=== PATIENT | female | born 1995 | race Caucasian/White ===

== ENCOUNTER 2019-12-07 05:45 | Emergency (ER) | payer BC, OTHER ==
[2019-12-07 05:57] VITALS: RESP 18
[2019-12-07] MEDS ORDERED: ORPHENADRINE 30 MG/ML 2 ML VIAL IM STA (06:02)
[2019-12-07] MEDS ORDERED: KETOROLAC 30 MG/ML 1 ML VIAL IM STA (06:03)
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
[2019-12-07 06:56] VITALS: BP 150/92; PULSE 84; TEMP 99
== END 2019-12-07 06:55 | disposition home or self-care (01) ==
LOC: EC 05:45
DX: M54.6 Pain in thoracic spine (principal); M25.512 Pain in left shoulder; M25.511 Pain in right shoulder; V49.59XA Passenger injured in collision with other motor vehicles in traffic accident, initial encounter; Y92.410 Unspecified street and highway as the place of occurrence of the external cause; Y99.0 Civilian activity done for income or pay
CPT/HCPCS: 99284; 96372 ×2; J2360; J1885

== ENCOUNTER → 2019-12-09 | Outpatient (CLI) | payer OTHER ==
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
== END | disposition home or self-care (01) ==
LOC: RADCTMAIN 13:40
PROVIDERS: ATTEND Emergency Medicine
DX: S13.4XXA Sprain of ligaments of cervical spine, initial encounter (principal); V89.2XXA Person injured in unspecified motor-vehicle accident, traffic, initial encounter; R51 Headache
CPT/HCPCS: 70450; 72125

== ENCOUNTER 2023-04-26 08:25 | Inpatient (IN) | payer BC ==
[2023-04-26] MEDS: IOPAMIDOL CONTRAST (ORAL USE) VIAL PO PRN ×2 (09:20→10:25)
[2023-04-26 09:33] LABS: Appearance,Urine Clear (Clear); Basophils % (A) 0 %; Bilirubin,Urine Negative (Negative); Blood,Urine Negative (Negative); Color,Urine Light Yellow; Eosinophils # (A) 0.1 k/uL (0-0.7); Eosinophils % (A) 1 %; Glucose,Urine (UA) Negative (Negative); HCT 33.8 % (34.0-46.0); HGB 11.4 gm/dL (11.4-16.0); Ketones,Urine Negative (Negative); Leukocyte Esterase,Urine Negative (Negative); Lymphocytes % (A) 7 %; MCH 31.8 pg (25.0-35.0); MCHC 33.8 g/dL (31.0-37.0); MCV 94.2 fL (80.0-100.0); Mean Platelet Volume 7.8; Monocytes # (A) 0.5 k/uL (0-1.0); Monocytes % (A) 3 %; Neutrophils % (A) 88 %; Nitrite,Urine Negative (Negative); PH, Urine 6.5 (5.0-8.0); Platelet Count 176 k/uL (150-450); Protein,Urine Negative (Negative); RBC 3.59 m/uL (3.80-5.40); RDW 13.4 % (11.5-15.5); Specific Gravity,Urine 1.005 (1.001-1.035); Urobilinogen,Urine <2.0 mg/dL (<2.0); WBC 13.6 k/uL (3.8-10.6)
[2023-04-26 09:34] LABS: African American GFR (CKD) >90 (>60 ml/min/1.73 sqM); Anion Gap 7 mmol/L; Blood Urea Nitrogen 8 mg/dL (7-17); Calcium 8.1 mg/dL (8.4-10.2); Carbon Dioxide 20 mmol/L (22-30); Chloride 107 mmol/L (98-107); Glucose 79 mg/dL (74-99); Non-African American GFR(CKD) >90 (>60 ml/min/1.73 sqM); Sodium 134 mmol/L (137-145)
[2023-04-26 09:44] LABS: Potassium 4.2 mmol/L (3.5-5.1)
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
--- NOTE | 2023-04-26 10:54 | CT ---
EXAMINATION TYPE: CT abdomen pelvis w con DATE OF EXAM: 04/26/2023 COMPARISON: NONE HISTORY: 28-year-old female RLQ pain TECHNIQUE: Contiguous axial scanning of the abdomen and pelvis following administration of 100 ml Iso dante 300 IV contrast. Coronal/sagittal reconstructions performed. CT DLP: 1179.4 mGycm Automated exposure control for dose reduction was used. FINDINGS: LUNG BASES: No significant abnormality is appreciated. LIVER/GB: The extreme right hepatic dome is excluded from view. The gallbladder appears surgically ab sent. Liver is enlarged measuring over 20 cm craniocaudal. Otherwise, no significant abnormality is a ppreciated. PANCREAS: No significant abnormality is seen. SPLEEN: Enlarged at 15.7 cm. ADRENALS: No significant abnormality is seen. KIDNEYS: No significant abnormality is seen. BOWEL: Appendix is visualized, fluid-filled, distended to 1.0 cm. There may be minimal adjacent fat s tranding, axial image 50 and coronal image 58. LYMPH NODES: No significant abnormality is seen. OTHER: No free air or free fluid. PELVIS: Gravid uterus. Anterior placenta. Uterus distended measuring 21.6 cm craniocaudal. A single i ntrauterine gestation is noted. Otherwise, no significant abnormality seen. Ovaries not well delineat ed from adjacent bowel loops. No significant free fluid seen. 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 Otherwise, no significant abnormality is seen. IMPRESSION: 1. FLUID-FILLED APPENDIX MILDLY DISTENDED UP TO 1.0 CM. THERE MAY BE MINIMAL ADJACENT FAT STRANDING O N AXIAL AND CORONAL SERIES. IN THE CORRECT CLINICAL SETTING, FINDINGS ARE SUGGESTIVE OF EARLY ACUTE A PPENDICITIS. 2. HEPATOSPLENOMEGALY AND GRAVID UTERUS.
[2023-04-26] MEDS: SODIUM CHLORIDE 0.9% 1,000 ML IV SCH ×2 (12:01→21:54)
[2023-04-26] MEDS: ACETAMINOPHEN IV (For NPO) 1,000 MG in EMPTY BAG 1 BAG IVPB SCH ×2 (12:01→19:50)
--- NOTE | 2023-04-26 12:03 | P.HPOB ---
History of Present Illness H&P Date: 04/26/23 Chief Complaint: abdominal pain 28 year old presents at 25 weeks 3 days in horrible constant abdominal pain more related to the right side. CT scan shows evidence of appendicitis and she has a WBC of 13.8. I consulted Dr Hyde, general surgery, who said to start rocephin and flagyl and he will then come see her. FHT are 150's with moderate variability, category 1. no contractions. Review of Systems All systems: negative Constitutional: Reports anorexia, Denies chills, Denies fever Eyes: denies blurred vision, denies pain Ears, nose, mouth and throat: Denies headache, Denies sore throat Cardiovascular: Denies chest pain, Denies shortness of breath Respiratory: Denies cough Gastrointestinal: Reports abdominal pain, Reports nausea, Denies diarrhea, Denies vomiting Genitourinary: Denies dysuria, Denies hematuria Musculoskeletal: Denies myalgias Integumentary: Denies pruritus, Denies rash Neurological: Denies numbness, Denies weakness Psychiatric: Reports depression, Denies anxiety Endocrine: Denies fatigue, Denies weight change Past Medical History Past Medical History: No Reported History Additional Past Medical History / Comment(s): PT has had one c-sections. This is her second and she has had care with me since the first trimester. RH neg History of Any Multi-Drug Resistant Organisms: None Reported Past Surgical History: Section Smoking Status: Never smoker Medications and Allergies Home Medications Medication Instructions Recorded Confirmed Type Escitalopram Oxalate [Lexapro] 20 mg PO DAILY 03/25/22 03/25/22 History Etonogestrel/Ethinyl Estradiol 1 vag ring VAGINAL Q28D 03/25/22 03/25/22 History [Eluryng Vaginal Ring] buPROPion XL [Wellbutrin XL] 150 mg PO DAILY 03/25/22 03/25/22 History HYDROcodone/APAP 5-325MG [[place] 1 tab PO Q6HR PRN 3 Days #12 tab 03/27/22 Rx 5-325] Ibuprofen [Motrin] 600 mg PO Q8HR PRN #30 tab 03/27/22 Rx Allergies Allergy/AdvReac Type Severity Reaction Status Date / Time No Known Allergies Allergy Verified 04/26/23 08:56 Exam Osteopathic Statement: *. No significant issues noted on an osteopathic structural exam other than those noted in the History and Physical/Consult. Intake and Output 04/25/23 04/26/23 04/26/23 22:59 06:59 14:59 Other: Weight 112.491 kg HEArt: RRR Lungs: CTAB ABdomen: gravid, tender over the right side with some guarding and rebound. Extremeties: neg akilah's Results Result Diagrams: 04/26/23 09:15 04/26/23 09:15 Abnormal Lab Results - Last 24 Hours (Table) 04/26/23 04/26/23 Range/Units 09:15 09:15 WBC 13.6 H (3.8-10.6) k/uL RBC 3.59 L (3.80-5.40) m/uL Hct 33.8 L (34.0-46.0) % Neutrophils # 12.0 H (1.3-7.7) k/uL Sodium 134 L (137-145) mmol/L Carbon Dioxide 20 L (22-30) mmol/L Creatinine 0.35 L (0.52-1.04) mg/dL Calcium 8.1 L (8.4-10.2) mg/dL Assessment and Plan (1) 25 weeks gestation of Current Visit: Yes Status: Acute Code(s): Z3A.25 - 25 WEEKS GESTATION OF SNOMED Code(s): 37363974 (2) Appendicitis Current Visit: Yes Status: Acute Code(s): K37 - UNSPECIFIED APPENDICITIS SNOMED Code(s): 76241222 Plan: 1. consult General surgery, Dr Hyde has been notified 2. start rocephin and flagyl 3. ofirmev and dilaudid 4. npo 5. monitor baby daily with a 20minute strip
[2023-04-26] MEDS: HYDROmorphone 1 MG/ML 1 ML SYRINGE IVP PRN ×3 (13:16→19:52)
--- NOTE | 2023-04-26 13:18 | P.GSCN ---
History of Present Illness Consult date: 04/26/23 Reason for Consult: Acute abdominal pain, second trimester , computed tomography scan abdomen and pelvis suggestive of acute appendicitis Requesting physician: Paulina Bueno History of present illness: Patient is a 28-year-old young lady who presented to [facility] of labor and delivery department with acute onset of focal mid and right lateral abdominal pain at around 7:00 this morning associated with anorexia. She denies discrete nausea and vomiting at present, no reports of fever or chills. She has some radiation of pain to the right flank and back of an aching character. She hasn't had similar symptoms in the past. Has no known history of inflammatory bowel disease. No reports of issues with diarrhea or constipation or GI bleeding. Surgical history is significant for previous laparoscopic cholecystectomy and delivery. She is presently 25 weeks' gestation into her second . Initial workup showed reassuring heart rate in the 150s. Abdominal ultrasound was obtained initially which was nondiagnostic. A follow-up computed tomography scan of the abdomen and pelvis was obtained, images and official report were reviewed showing what would appear to be an early uncomplicated acute appendicitis. Appendix is to posterior right lateral right upper quadrant, displaced cephalad by the gravid uterus. There is no discrete appendicolith seen, there is mild dilation of the appendix up to around 1 cm and some scant periappendiceal fat stranding. No evidence of rupture or abscess. Initial labs showed a mild leukocytosis, patient's had a hemodynamically stable and afebrile appearance in terms of vital signs. Pain has been persistent until early this afternoon. Review of Systems All systems: negative - Constitutional Reports as per HPI Past Medical History Past Medical History: No Reported History Additional Past Medical History / Comment(s): PT has had one c-sections. This is her second and she has had care with me since the first trimester. RH neg History of Any Multi-Drug Resistant Organisms: None Reported Past Surgical History: Section, Cholecystectomy Smoking Status: Never smoker - Past Family History Mother Family Medical History: No Reported History Medications and Allergies Home Medications Medication Instructions Recorded Confirmed Type Escitalopram Oxalate [Lexapro] 20 mg PO DAILY 03/25/22 03/25/22 History Etonogestrel/Ethinyl Estradiol 1 vag ring VAGINAL Q28D 03/25/22 03/25/22 History [Eluryng Vaginal Ring] buPROPion XL [Wellbutrin XL] 150 mg PO DAILY 03/25/22 03/25/22 History HYDROcodone/APAP 5-325MG [[place] 1 tab PO Q6HR PRN 3 Days #12 tab 03/27/22 Rx 5-325] Ibuprofen [Motrin] 600 mg PO Q8HR PRN #30 tab 03/27/22 Rx Allergies Allergy/AdvReac Type Severity Reaction Status Date / Time No Known Allergies Allergy Verified 04/26/23 08:56 Surgical - Exam Osteopathic Statement: *. No significant issues noted on an osteopathic structural exam other than those noted in the History and Physical/Consult. Vital Signs Temp Pulse Resp BP Pulse Ox 98.0 F 86 16 116/62 99 04/26/23 08:55 04/26/23 08:55 04/26/23 08:55 04/26/23 08:55 04/26/23 08:55 - General well developed, well nourished, moderate pain - Eyes PERRL, normal ocular movement - ENT normal mucosa, no hearing loss - Neck trachea midline - Respiratory normal expansion, normal respiratory effort, clear to auscultation - Cardiovascular Rhythm: regular - Abdomen There is severe focal right lateral tenderness to palpation with voluntary guarding, positive Rovsing sign consistent with localized peritonitis. Positive psoas sign on the right. No evidence of diffuse peritonitis. Abdomen: soft Hernia: none - Integumentary no rash, no growths - Neurologic normal coordination, normal sensation - Psychiatric oriented to time, oriented to person, oriented to place, speech is normal, memory intact Results - Labs 04/26/23 09:15 04/26/23 09:15 Abnormal Lab Results - Last 24 Hours (Table) 04/26/23 04/26/23 Range/Units 09:15 09:15 WBC 13.6 H (3.8-10.6) k/uL RBC 3.59 L (3.80-5.40) m/uL Hct 33.8 L (34.0-46.0) % Neutrophils # 12.0 H (1.3-7.7) k/uL Sodium 134 L (137-145) mmol/L Carbon Dioxide 20 L (22-30) mmol/L Creatinine 0.35 L (0.52-1.04) mg/dL Calcium 8.1 L (8.4-10.2) mg/dL Diabetes panel 04/26/23 Range/Units 09:15 Sodium 134 L (137-145) mmol/L Potassium 4.2 (3.5-5.1) mmol/L Chloride 107 (98-107) mmol/L Carbon Dioxide 20 L (22-30) mmol/L BUN 8 (7-17) mg/dL Creatinine 0.35 L (0.52-1.04) mg/dL Glucose 79 (74-99) mg/dL Calcium 8.1 L (8.4-10.2) mg/dL Calcium panel 04/26/23 Range/Units 09:15 Calcium 8.1 L (8.4-10.2) mg/dL Pituitary panel 04/26/23 Range/Units 09:15 Sodium 134 L (137-145) mmol/L Potassium 4.2 (3.5-5.1) mmol/L Chloride 107 (98-107) mmol/L Carbon Dioxide 20 L (22-30) mmol/L BUN 8 (7-17) mg/dL Creatinine 0.35 L (0.52-1.04) mg/dL Glucose 79 (74-99) mg/dL Calcium 8.1 L (8.4-10.2) mg/dL Adrenal panel 04/26/23 Range/Units 09:15 Sodium 134 L (137-145) mmol/L Potassium 4.2 (3.5-5.1) mmol/L Chloride 107 (98-107) mmol/L Carbon Dioxide 20 L (22-30) mmol/L BUN 8 (7-17) mg/dL Creatinine 0.35 L (0.52-1.04) mg/dL Glucose 79 (74-99) mg/dL Calcium 8.1 L (8.4-10.2) mg/dL - Imaging CT scan - abdomen: report reviewed, image reviewed CT scan - pelvis: report reviewed, image reviewed US - abdomen: report reviewed Assessment and Plan Assessment: 28-year-old lady with a clinical history, physical exam findings, laboratory studies, and computed tomography scan findings all consistent with an early uncomplicated acute appendicitis in the setting of a second trimester at 25 weeks' gestation. Reassuring heart rate on presentation. Plan: Options for treatment were discussed with the patient at bedside. I advised her that nonoperative management with antibiotics alone is an option but may be associated with an increased risk of labor and loss compared to appendectomy with around a threefold increase in its ratio. She was also advised that she would have an increased risk for her port site and incisional hernia in the setting of surgery in . She wishes to move forward laparoscopic, possible open appendectomy and gave informed consent for the same after discussion of risks, benefit and alternatives to treatment. She's been started on broad-spectrum IV antibiotics with Rocephin 2 g every 24 hours and Flagyl 500 mg every 8 hours. I've had her added to the OR schedule for today, we will anticipate surgery somewhere between 5 and 6 PM early this evening schedule permitting. Time with Patient: Greater than 30
[2023-04-26] MEDS: metroNIDAZOLE-NS PMX 500 MG in SALINE 1 100ML.BAG IVPB SCH (14:26)
[2023-04-26 14:49] LABS: Prothrombin Time 10.6 sec (9.0-12.0)
[2023-04-26] MEDS ORDERED: IV FLUID CONTINUATION 1,000 ML IV ONE (21:29)
[2023-04-26] MEDS ORDERED: ONDANSETRON 4 MG/2 ML VIAL ONE (21:29)
[2023-04-26] MEDS ORDERED: MORPHINE SULFATE (PF) 0.3 MG/0.3 ML SYR ONE (21:29)
[2023-04-26] MEDS ORDERED: LIDOCAINE 0.5%-EPI 1:200,000 50 ML VIAL SQ ONE (21:51)
[2023-04-26] MEDS ORDERED: BUPIVACAINE (PF) 0.25% 30 ML VIAL SQ ONE (21:51)
[2023-04-26] MEDS ORDERED: LACTATED RINGERS 1,000 ML IV ONE (22:30)
[2023-04-26] MEDS ORDERED: ONDANSETRON 4 MG/2 ML VIAL IVP PRN (22:48)
[2023-04-26] MEDS ORDERED: NALOXONE 0.4 MG/ML 1 ML VIAL IV PRN (22:48)
--- NOTE | 2023-04-26 23:07 | P.OP ---
Date of Procedure: 04/26/23 Preoperative Diagnosis: Acute appendicitis, second trimester Postoperative Diagnosis: Acute suppurative appendicitis without rupture or abscess, second trimester Procedure(s) Performed: Open appendectomy with local anesthesia field block and abdominal drain placement, application of Prevena wound VAC dressing over a 12 cm incision Anesthesia: local, spinal Surgeon: Sal Waller Estimated Blood Loss (ml): 15 Pathology: other (Appendix and moved to pathology, intra-abdominal fluid submitted for cultures and Gram stain) Condition: stable Disposition: PACU Indications for Procedure: Patient is a 28-year-old lady who presented to labor and delivery floor at [facility] on 04/26/2023 with acute onset of right-sided abdominal pain at around 7:00 in the morning of that same day. Pain grew progressive into the day and as such she presented to the hospital. Initial abdominal ultrasound was inconclusive, patient had a mild leukocytosis and exam findings concerning for acute appendicitis. This was confirmed with abdominal CT. Patient was started on broad-spectrum antibiotics and gave informed consent for the aforementioned procedure after discussion of risks, benefit alternatives to treatment. Operative Findings: Acute separative appendicitis without rupture or abscess. Description of Procedure: Patient was taken to the operating room suite. She was placed in supine posi tion and prepped and draped in sterile fashion proximal following spinal anesthesia. Local anesthesia field block was performed over the planned incision over the right abdomen at the area of greatest tenderness on exam and a small transverse skin incision made and abdomen entered with a rectus splitting incision following fascial block at the anterior sheath with 1% lidocaine and quarter percent Marcaine with epinephrine solution. There was a small amount of purulent free fluid noted on entry a sample was submitted for culture and fluid fully aspirated.. The cecum was identified, medialized, and the tinea followed to the indurated, acutely inflamed appearing appendix. There was no evidence of discrete rupture or abscess. Window was created bluntly at the base of the appendix at its confluence with the cecum and divided with Endo CARMELITA tri-staple Wilder load. Mesoappendix and appendiceal artery were taken down with LigaSure. Appendix was submitted to pathology. Staple line was intact, operative showed adequate hemostasis. Given the separative free fluid encountered about the appendix 19-[place] Tashi drain was placed in the right lower quadrant abdomen, secured with 0 silk and connected to suction. The anterior sheath was closed longitudinally with interrupted #1 Vicryl suture. The incision was reapproximated with 3-0 Vicryl dermal suture and skin incision closed with skin stapler. Upper vena VAC dressing was placed over the approximately 12 cm skin incision, connected to suction without leak. Patient was transferred to the postanesthesia care unit in stable condition. She may advance to clear liquids tomorrow, continue with IV antibiotics in the meantime. If she does well she may be ready for discharge home tomorrow afternoon at the earliest with antibiotic coverage for a full 10 day course.
[2023-04-26] MEDS ORDERED: HYDROmorphone 0.5 MG/0.5 ML SYRINGE IVP ONE ×2 (23:12→23:19)
[2023-04-27] MEDS: ACETAMINOPHEN IV (For NPO) 1,000 MG in EMPTY BAG 1 BAG IVPB SCH (00:26)
[2023-04-27] MEDS: metroNIDAZOLE-NS PMX 500 MG in SALINE 1 100ML.BAG IVPB SCH ×3 (00:44→16:02)
[2023-04-27] MEDS: HYDROmorphone 1 MG/ML 1 ML SYRINGE IVP PRN ×5 (03:55→20:01)
[2023-04-27] MEDS ORDERED: HYDROcodone/APAP 7.5-325MG 1 EACH TAB PO PRN (04:32)
[2023-04-27] MEDS: diphenhydrAMINE 50 MG CAP PO PRN ×2 (04:43→10:51)
[2023-04-27] MEDS: SODIUM CHLORIDE 0.9% 1,000 ML IV SCH ×2 (05:59→18:36)
--- NOTE | 2023-04-27 10:15 | P.PNOBGAP ---
Subjective - Subjective Principal diagnosis: S/P appendectomy POD #1, at 25 weeks 4 days Interval history: Patient underwent open appendectomy with placement of drain yesterday by Dr. Waller. heart tones remained category 1 at 25 weeks and 4 days. Patient's pain is now well controlled currently. I will change her from all the oral medications to Tylenol every 6 and Dilaudid IV push every 3 hours as needed. Antepartum ROS: Reports movement normal, Denies loss of fluid, Denies vaginal bleeding, Denies contractions Objective - Vital Signs Vital Signs: Vital Signs Temp Pulse Pulse Pulse Resp BP Pulse Ox 04/27/23 08:00 97.9 F 83 18 107/58 96 04/27/23 06:04 14 04/27/23 03:53 96.8 F L 96 16 109/63 97 04/27/23 02:00 97.2 F L 83 14 113/59 97 04/27/23 01:18 97.5 F L 96 14 111/57 95 04/27/23 00:50 101 H 18 113/56 96 04/27/23 00:33 98.7 F 95 18 108/57 97 04/27/23 00:20 92 16 106/58 04/27/23 00:05 84 14 114/59 04/26/23 23:53 98.5 F 89 14 117/59 94 L 04/26/23 23:23 97 20 116/65 96 04/26/23 23:08 90 20 118/64 94 L 04/26/23 22:52 97.5 F L 97 16 115/68 97 04/26/23 20:40 93 14 99/52 96 04/26/23 17:01 98.2 F 90 16 114/57 04/26/23 12:00 98.0 F 86 16 116/62 99 Intake and Output 04/26/23 04/27/23 04/27/23 22:59 06:59 14:59 Intake Total 1800 1000 Output Total 13 490 1060 Balance 1787 510 -1060 Intake: IV 1800 1000 Output: Drainage 90 60 Right Lower Anterior 90 60 Abdomen Urine 400 1000 Uretheral (Chiu) 400 1000 Estimated Blood Loss 13 Other: Voiding Method Indwelling Catheter # Voids 1 - Exam FHR: class 1 Auscultation: right: normal Abdomen: Present: normal appearance, soft, other (Small amount of serous drainage in the drain, dressing is clean and intact, decreased bowel sounds) Uterus: Present: normal, other () - Labs Labs: Abnormal Labs 04/26/23 04/26/23 09:15 09:15 WBC 13.6 H RBC 3.59 L Hct 33.8 L Neutrophils # 12.0 H Sodium 134 L Carbon Dioxide 20 L Creatinine 0.35 L Calcium 8.1 L Assessment and Plan (1) 25 weeks gestation of Current Visit: Yes Status: Acute Code(s): Z3A.25 - 25 WEEKS GESTATION OF SNOMED Code(s): 08339395 (2) Appendicitis Current Visit: Yes Status: Resolved Code(s): K37 - UNSPECIFIED APPENDICITIS SNOMED Code(s): 40100067 (3) Status post appendectomy Current Visit: Yes Status: Acute Code(s): Z90.49 - ACQUIRED ABSENCE OF OTHER SPECIFIED PARTS OF DIGESTIVE TRACT SNOMED Code(s): 487837943 Plan: 1. Pain control 2. Increase ambulation 3. heart tones daily
[2023-04-27] MEDS ORDERED: NALBUPHINE 10 MG/ML (10 ML MDV) IM ONE (10:34)
[2023-04-27] MEDS: ACETAMINOPHEN TAB 500 MG TAB PO SCH ×2 (11:52→18:33)
[2023-04-27] MEDS ORDERED: ACETAMINOPHEN IV (For NPO) 1,000 MG in EMPTY BAG 1 BAG IVPB SCH (12:00)
--- NOTE | 2023-04-27 12:37 | P.PN ---
Subjective Progress Note Date: 04/27/23 Principal diagnosis: Acute suppurative appendicitis without rupture or organized abscess, second trimester at 25 weeks' gestation Patient seen and examined at bedside today. Admits to some significant incisional pain is worse with movement and position changes. Has been tolerating clear liquids, appetite remains somewhat poor. No bowel function yet, voiding without issue of this afternoon, required 1 straight cath postoperatively. She's had a hemodynamically stable and afebrile appearance overnight. Prevena wound vac is in some place to suction without leak, abdominal drain yielding predominantly serous aspirate. Objective - Vital Signs Vital signs: Vital Signs Temp 97.9 F 04/27/23 08:00 Pulse 83 04/27/23 08:00 Resp 18 04/27/23 08:00 BP 107/58 04/27/23 08:00 Pulse Ox 96 04/27/23 08:00 FiO2 Intake & Output 04/26/23 04/27/23 04/27/23 18:59 06:59 18:59 Intake Total 2800 Output Total 503 1985 Balance 2296 -1984 Weight 112.491 kg Intake: IV 2800 Output: Drainage 90 85 Right Lower Anterior 90 85 Abdomen Urine 400 1900 Uretheral (Chiu) 400 1000 Estimated Blood Loss 13 Other: Voiding Method Indwelling Catheter # Voids 1 1 1 - Constitutional General appearance: Present: cooperative, no acute distress - EENT Eyes: Present: PERRLA ENT: Present: hearing grossly normal, NA/AT - Respiratory Respiratory: bilateral: CTA - Cardiovascular Rhythm: regular - Gastrointestinal Gastrointestinal Comment(s): Abdomen is soft, there is moderate incisional tenderness to palpation over the right lateral abdomen. Abdominal drains in place with serous aspirate. Wound VAC dressings in place to suction without leak. - Neurologic Neurologic: Present: CNII-XII intact - Psychiatric Psychiatric: Present: A&O x's 3, appropriate affect, intact judgment & insight - Labs CBC & Chem 7: 04/26/23 09:15 04/26/23 09:15 Assessment and Plan Assessment: 28-year-old lady POD#1 open appendectomy for acute suppurative appendicitis without rupture or abscess. Second trimester at 25 weeks' gestation, reassuring heart rate today. Plan: Continue with clear liquids for today, continue with IV antibiotics. Increase activity. If she shows some improvement tomorrow will anticipate advancing diet. I would anticipate her being in the hospital through the weekend. Continue with drain to suction. Time with Patient: Greater than 30
--- NOTE | 2023-04-27 18:32 | P.PN ---
Progress Note - Text Progress Note Date: 04/27/23 Postoperative day 1 status post open appendectomy under spinal anesthesia, and intrathecal morphine given for postoperative analgesia, patient doing well, there is no anesthesia related complications, Patient had no headache, vital signs stable , Assessment and plan= postop day 1 status post open appendectomy, doing well there is no anesthesia related complication.
[2023-04-27] MEDS ORDERED: MAGNESIUM SULFATE-WATER PMX 4 GM in WATER FOR INJECTION 1 100ML.BAG IVPB ONE (21:59)
[2023-04-27] MEDS: MAGNESIUM SULFATE-WATER PMX 20 GM in WATER FOR INJECTION 1 500ML.BAG IV SCH (22:38)
[2023-04-27] MEDS ORDERED: INDOMETHACIN 25 MG CAP PO STA (22:40)
[2023-04-27] MEDS ORDERED: MAG HYDROX/AL HYDROX/SIMETH 30 ML CUP PO PRN (22:44)
--- NOTE | 2023-04-27 22:54 | US ---
EXAMINATION TYPE: US OB limited DATE OF EXAM: 04/27/2023 COMPARISON: NONE CLINICAL INDICATION: Female, 28 years old with history of leonie, position; evaluate LEONIE and posit ion EXAM PERFORMED: Transabdominal (TA) GESTATIONAL AGE / DATING Physician Established: (25 weeks/5 days) EDC: 08/05/23 No growth performed on today?s study per ordering physician SURVEY LEONIE: 13.5 cm Normal Ultrasound evidence of premature rupture of membranes? no PRESENTATION: Vertex LIE: Transverse with head maternal LT HEART RATE: 134 bpm RHYTHM: Normal IMPRESSION: survey , information as described above. ,
[2023-04-27] MEDS: BETAMET ACET-BETAMETH SOD PHOS 6 MG/ML MDV IM SCH (23:00)
[2023-04-28] MEDS: metroNIDAZOLE-NS PMX 500 MG in SALINE 1 100ML.BAG IVPB SCH ×4 (00:12→23:53)
[2023-04-28] MEDS: ACETAMINOPHEN TAB 500 MG TAB PO SCH ×5 (00:13→22:07)
[2023-04-28] MEDS: LACTATED RINGERS 1,000 ML IV SCH ×2 (00:14→16:14)
[2023-04-28 05:35] LABS: Basophils % (A) 0 %; Eosinophils % (A) 1 %; HCT 30.5 % (34.0-46.0); HGB 10.3 gm/dL (11.4-16.0); Lymphocytes # (A) 0.6 k/uL (1.0-4.8); Lymphocytes % (A) 10 %; MCH 31.9 pg (25.0-35.0); MCHC 33.6 g/dL (31.0-37.0); MCV 94.8 fL (80.0-100.0); Mean Platelet Volume 8.1; Monocytes # (A) 0.4 k/uL (0-1.0); Monocytes % (A) 6 %; Neutrophils # (A) 5.1 k/uL (1.3-7.7); Neutrophils % (A) 82 %; Platelet Count 147 k/uL (150-450); RBC 3.22 m/uL (3.80-5.40); RDW 13.4 % (11.5-15.5); WBC 6.2 k/uL (3.8-10.6)
[2023-04-28] MEDS: INDOMETHACIN 25 MG CAP PO SCH ×4 (06:23→23:54)
[2023-04-28 06:52] LABS: ALT 14 U/L (4-34); AST 19 U/L (14-36); African American GFR (CKD) >90 (>60 ml/min/1.73 sqM); Albumin 2.9 g/dL (3.5-5.0); Alkaline Phosphatase 88 U/L (38-126); Anion Gap 4 mmol/L; Blood Urea Nitrogen 3 mg/dL (7-17); Calcium 6.7 mg/dL (8.4-10.2); Carbon Dioxide 22 mmol/L (22-30); Chloride 109 mmol/L (98-107); Glucose 94 mg/dL (74-99); Non-African American GFR(CKD) >90 (>60 ml/min/1.73 sqM); Potassium 3.4 mmol/L (3.5-5.1); Sodium 135 mmol/L (137-145); Total Bilirubin 0.3 mg/dL (0.2-1.3); Total Protein 5.6 g/dL (6.3-8.2)
[2023-04-28] MEDS: MAGNESIUM SULFATE-WATER PMX 20 GM in WATER FOR INJECTION 1 500ML.BAG IV SCH (07:55)
--- NOTE | 2023-04-28 09:12 | P.PNOBGAP ---
Subjective - Subjective Principal diagnosis: Status post open appendectomy, G to P1 at 25 and 6 Interval history: Last night and was called in to see the patient due to contractions and increased pain. Her cervix remained closed but she did start to have contractions every few minutes. Started magnesium sulfate for brain sparing, Celestone for baby's lungs in case she does deliver and a course of Indocin after an LEONIE was measured to be 13 cm. She has since stopped blaine and I will discontinue the magnesium sulfate continue the Indocin. She is starting to have an appetite and has bowel sounds, is passing flatus. Antepartum ROS: Reports movement normal, Denies loss of fluid, Denies contractions Objective - Vital Signs Vital Signs: Vital Signs Temp Pulse Pulse Resp BP Pulse Ox 04/28/23 08:00 97.3 F L 80 18 118/64 100 04/28/23 06:21 97.2 F L 72 14 115/67 97 04/28/23 03:59 97.3 F L 92 14 107/56 96 04/28/23 01:58 96.8 F L 85 14 110/58 95 04/28/23 00:01 98.6 F 85 14 120/64 95 04/27/23 23:03 97.5 F L 81 16 105/54 96 04/27/23 22:48 86 18 121/65 98 04/27/23 22:33 79 18 119/62 94 L 04/27/23 22:18 97.9 F 75 20 109/59 99 04/27/23 20:00 98.2 F 78 18 110/61 100 04/27/23 18:00 18 04/27/23 15:57 97.3 F L 75 16 111/55 99 04/27/23 14:00 17 04/27/23 13:00 97.4 F L 79 18 101/50 04/27/23 10:00 16 Intake and Output 04/27/23 04/28/23 04/28/23 22:59 06:59 14:59 Intake Total 100 1150 464.167 Output Total 100 3440 625 Balance 0 -2290 -160.833 Intake: IV 100 1100 Invasive Line 1 1000 Intake, IV Titration 464.167 Amount Magnesium Sulfate-Water 464.167 Pmx 20 gm In Water For Injection 1 500ml.bag @ 2 GM/HR 50 mls/hr IV .Q10H [facility] Rx#:[id number] Oral 50 Output: Drainage 100 90 25 Right Lower Anterior 100 90 25 Abdomen Urine 3350 600 Uretheral (Chiu) 3350 Other: Voiding Method Indwelling Catheter Indwelling Catheter # Voids 1 0 - Exam FHR: class 1 Auscultation: bilateral: normal Abdomen: Present: normal appearance, soft Uterus: Present: normal - Labs Labs: Abnormal Labs 04/26/23 04/26/23 04/28/23 09:15 09:15 05:23 WBC 13.6 H RBC 3.59 L 3.22 L Hgb 10.3 L Hct 33.8 L 30.5 L Plt Count 147 L Neutrophils # 12.0 H Lymphocytes # 0.6 L Sodium 134 L Potassium Chloride Carbon Dioxide 20 L BUN Creatinine 0.35 L Calcium 8.1 L Total Protein Albumin 04/28/23 05:23 WBC RBC Hgb Hct Plt Count Neutrophils # Lymphocytes # Sodium 135 L Potassium 3.4 L Chloride 109 H Carbon Dioxide BUN 3 L Creatinine 0.43 L Calcium 6.7 L Total Protein 5.6 L Albumin 2.9 L Assessment and Plan (1) 25 weeks gestation of Current Visit: Yes Status: Acute Code(s): Z3A.25 - 25 WEEKS GESTATION OF SNOMED Code(s): 67867440 (2) Appendicitis Current Visit: Yes Status: Resolved Code(s): K37 - UNSPECIFIED APPENDICITIS SNOMED Code(s): 14472441 (3) Status post appendectomy Current Visit: Yes Status: Acute Code(s): Z90.49 - ACQUIRED ABSENCE OF OTHER SPECIFIED PARTS OF DIGESTIVE TRACT SNOMED Code(s): 510078149 Plan: 1. Continue Indocin and Tylenol with oxycodone for breakthrough pain 2. Monitor for contractions 3. Continue IV antibiotics per surgery
--- NOTE | 2023-04-28 11:38 | P.PN ---
Subjective Progress Note Date: 04/28/23 Principal diagnosis: Acute suppurative appendicitis without rupture or organized abscess, second trimester at 25 weeks' gestation Patient seen and examined at bedside. Feeling slightly better today than yesterday but still having incisional pains exacerbated with movement and position changes. As been tolerating clear liquids, starting to feel hungry. Had some issues with contractions overnight that have subsided. Follow- up ultrasound is reassuring. She's had a hemodynamically stable and afebrile appearance overnight. No leukocytosis, hemoglobin stable. Prevena VAC dressing remains to suction without leak, abdominal drain yielding serous asp irate. Intraoperative culture results don't appear to be available in the system. Objective - Vital Signs Vital signs: Vital Signs Temp 97.3 F L 04/28/23 08:00 Pulse 80 04/28/23 08:00 Resp 18 04/28/23 08:00 BP 118/64 04/28/23 08:00 Pulse Ox 100 04/28/23 08:00 FiO2 Intake & Output 04/27/23 04/28/23 04/28/23 18:59 06:59 18:59 Intake Total 1250 464.167 Output Total 2925 3500 625 Balance -2925 -2250 -160.833 Intake: IV 1200 Invasive Line 1 1000 Intake, IV Titration 464.167 Amount Magnesium Sulfate-Water 464.167 Pmx 20 gm In Water For Injection 1 500ml.bag @ 2 GM/HR 50 mls/hr IV .Q10H [facility] Rx#:[id number] Oral 50 Output: Drainage 125 150 25 Right Lower Anterior 125 150 25 Abdomen Urine 2800 3350 600 Uretheral (Chiu) 1000 3350 Other: Voiding Method Indwelling Catheter # Voids 1 0 - Constitutional General appearance: Present: cooperative, no acute distress - EENT Eyes: Present: EOMI, PERRLA ENT: Present: NA/AT - Respiratory Respiratory: bilateral: CTA - Gastrointestinal Gastrointestinal Comment(s): Abdomen is soft, no guarding or rebound. Continues with and tenderness over right lateral abdominal incision, no cellulitic changes appreciated. Overall exam is slightly improved compared to yesterday. - Neurologic Neurologic: Present: CNII-XII intact - Psychiatric Psychiatric: Present: A&O x's 3, appropriate affect, intact judgment & insight - Labs CBC & Chem 7: 04/28/23 05:23 04/28/23 05:23 Labs: Abnormal Lab Results - Last 24 Hours (Table) 04/28/23 04/28/23 Range/Units 05:23 05:23 RBC 3.22 L (3.80-5.40) m/uL Hgb 10.3 L (11.4-16.0) gm/dL Hct 30.5 L (34.0-46.0) % Plt Count 147 L (150-450) k/uL Lymphocytes # 0.6 L (1.0-4.8) k/uL Sodium 135 L (137-145) mmol/L Potassium 3.4 L (3.5-5.1) mmol/L Chloride 109 H (98-107) mmol/L BUN 3 L (7-17) mg/dL Creatinine 0.43 L (0.52-1.04) mg/dL Calcium 6.7 L (8.4-10.2) mg/dL Total Protein 5.6 L (6.3-8.2) g/dL Albumin 2.9 L (3.5-5.0) g/dL Assessment and Plan Assessment: 28-year-old lady POD#2 open appendectomy for acute suppurative appendicitis without rupture or abscess. Second trimester at 25 weeks' gestation, reassuring ultrasound. Plan: Advanced to full liquids, continue with IV antibiotics. Ambulate halls at least 3 times daily, up to chair for meals. I would anticipate her being in the hospital through the weekend. Continue with drain to suction. Time with Patient: Greater than 30
[2023-04-28] MEDS: BETAMET ACET-BETAMETH SOD PHOS 6 MG/ML MDV IM SCH (22:08)
[2023-04-29] MEDS: ACETAMINOPHEN TAB 500 MG TAB PO SCH ×3 (03:37→15:05)
[2023-04-29] MEDS: LACTATED RINGERS 1,000 ML IV SCH (03:38)
[2023-04-29] MEDS: INDOMETHACIN 25 MG CAP PO SCH ×2 (06:00→11:56)
[2023-04-29 06:41] LABS: Basophils % (A) 0 %; Eosinophils % (A) 0 %; HCT 29.9 % (34.0-46.0); HGB 10.3 gm/dL (11.4-16.0); Lymphocytes # (A) 0.5 k/uL (1.0-4.8); Lymphocytes % (A) 9 %; MCH 32.8 pg (25.0-35.0); MCHC 34.4 g/dL (31.0-37.0); MCV 95.5 fL (80.0-100.0); Mean Platelet Volume 8.1; Monocytes # (A) 0.2 k/uL (0-1.0); Monocytes % (A) 3 %; Neutrophils # (A) 4.9 k/uL (1.3-7.7); Neutrophils % (A) 86 %; Platelet Count 157 k/uL (150-450); RBC 3.13 m/uL (3.80-5.40); RDW 13.4 % (11.5-15.5); WBC 5.6 k/uL (3.8-10.6)
[2023-04-29 06:59] LABS: ALT 16 U/L (4-34); AST 19 U/L (14-36); African American GFR (CKD) >90 (>60 ml/min/1.73 sqM); Albumin 2.9 g/dL (3.5-5.0); Alkaline Phosphatase 86 U/L (38-126); Anion Gap 5 mmol/L; Blood Urea Nitrogen 4 mg/dL (7-17); Calcium 7.4 mg/dL (8.4-10.2); Carbon Dioxide 22 mmol/L (22-30); Chloride 108 mmol/L (98-107); Glucose 111 mg/dL (74-99); Non-African American GFR(CKD) >90 (>60 ml/min/1.73 sqM); Potassium 3.7 mmol/L (3.5-5.1); Sodium 135 mmol/L (137-145); Total Bilirubin 0.2 mg/dL (0.2-1.3); Total Protein 5.7 g/dL (6.3-8.2)
--- NOTE | 2023-04-29 07:07 | P.PNOBGAP ---
Subjective - Subjective Principal diagnosis: S/P appendectomy. 26 weeks 1 day Interval history: Pt did not have contractions overnight. Her pain is well controlled with tylenol. moving about the room with little difficulty. Good movement and no loss of fluid or bleeding. There is still some serous fluid in the drain. dressing is intact. Antepartum ROS: Reports movement normal, Denies new complaints Objective - Vital Signs Vital Signs: Vital Signs Temp Pulse Resp BP Pulse Ox 04/28/23 23:58 97.5 F L 81 14 112/53 98 04/28/23 22:05 97.7 F 04/28/23 08:00 97.3 F L 80 18 118/64 100 Intake and Output 04/28/23 04/29/23 04/29/23 22:59 06:59 14:59 Intake Total 1200 Output Total 25 30 Balance -25 1170 Intake: Oral 1200 Output: Drainage 25 30 Right Lower Anterior 25 30 Abdomen Other: # Voids 2 2 - Exam FHR: class 1 Abdomen: Present: normal appearance, soft Uterus: Absent: tenderness - Labs Labs: Abnormal Labs 04/26/23 04/26/23 04/28/23 09:15 09:15 05:23 WBC 13.6 H RBC 3.59 L 3.22 L Hgb 10.3 L Hct 33.8 L 30.5 L Plt Count 147 L Neutrophils # 12.0 H Lymphocytes # 0.6 L Sodium 134 L Potassium Chloride Carbon Dioxide 20 L BUN Creatinine 0.35 L Glucose Calcium 8.1 L Total Protein Albumin 04/28/23 04/29/23 04/29/23 05:23 06:17 06:17 WBC RBC 3.13 L Hgb 10.3 L Hct 29.9 L Plt Count Neutrophils # Lymphocytes # 0.5 L Sodium 135 L 135 L Potassium 3.4 L Chloride 109 H 108 H Carbon Dioxide BUN 3 L 4 L Creatinine 0.43 L 0.33 L Glucose 111 H Calcium 6.7 L 7.4 L Total Protein 5.6 L 5.7 L Albumin 2.9 L 2.9 L Assessment and Plan (1) 25 weeks gestation of Current Visit: Yes Status: Acute Code(s): Z3A.25 - 25 WEEKS GESTATION OF SNOMED Code(s): 99572417 (2) Appendicitis Current Visit: Yes Status: Resolved Code(s): K37 - UNSPECIFIED APPENDICITIS SNOMED Code(s): 91157028 (3) Status post appendectomy Current Visit: Yes Status: Acute Code(s): Z90.49 - ACQUIRED ABSENCE OF OTHER SPECIFIED PARTS OF DIGESTIVE TRACT SNOMED Code(s): 236401115 Plan: 1. increase ambulation 2. finish indocin course today 3. she was supposed to have 1hr glucola today but I advised her to wait a couple weeks before taking that test.
[2023-04-29] MEDS: metroNIDAZOLE-NS PMX 500 MG in SALINE 1 100ML.BAG IVPB SCH ×2 (07:41→17:21)
--- NOTE | 2023-04-29 15:14 | P.PN ---
Subjective Progress Note Date: 04/29/23 Principal diagnosis: Acute suppurative appendicitis without rupture or organized abscess, second trimester at 25 weeks' gestation Patient seen and examined at bedside. Feeling much better today than yesterday. Incisional pain is nearly completely resolved. She is ambulatory without issue, tolerating regular diet, admits to bowel function. No fever or chills. Pain that she came in with is completely gone. Her abdominal drain is yielding serous fluid, VAC dressing remains in place to suction without leak. She's had a hemodynamically stable and afebrile appearance overnight. No additional issues with contractions. Objective - Vital Signs Vital signs: Vital Signs Temp 97.2 F L 04/29/23 08:00 Pulse 70 04/29/23 08:00 Resp 16 04/29/23 08:00 BP 119/64 04/29/23 08:00 Pulse Ox 99 04/29/23 08:00 FiO2 Intake & Output 04/28/23 04/29/23 04/29/23 18:59 06:59 18:59 Intake Total 371.729 4893 50 Output Total 650 30 30 Balance -754.262 9073 20 Intake: Intake, IV Titration 464.167 Amount Magnesium Sulfate-Water 464.167 Pmx 20 gm In Water For Injection 1 500ml.bag @ 2 GM/HR 50 mls/hr IV .Q10H [facility] Rx#:[id number] Oral 1200 50 Output: Drainage 50 30 30 Right Lower Anterior 50 30 30 Abdomen Urine 600 Other: # Voids 2 2 - Constitutional General appearance: Present: cooperative - EENT Eyes: Present: EOMI, PERRLA ENT: Present: NA/AT - Respiratory Respiratory: bilateral: CTA - Gastrointestinal Gastrointestinal Comment(s): Abdomen is soft, minimal incisional tenderness to palpation, no guarding rebound or distention. Abdominal drains in place with serous aspirate. VAC dressings in place, to suction, without leak. No evidence of peritonitis. Exam is m arkedly improved compared to yesterday. - Neurologic Neurologic: Present: CNII-XII intact - Musculoskeletal Musculoskeletal: Present: gait normal, strength equal bilaterally - Psychiatric Psychiatric: Present: A&O x's 3 - Labs CBC & Chem 7: 04/29/23 06:17 04/29/23 06:17 Labs: Abnormal Lab Results - Last 24 Hours (Table) 04/29/23 04/29/23 Range/Units 06:17 06:17 RBC 3.13 L (3.80-5.40) m/uL Hgb 10.3 L (11.4-16.0) gm/dL Hct 29.9 L (34.0-46.0) % Lymphocytes # 0.5 L (1.0-4.8) k/uL Sodium 135 L (137-145) mmol/L Chloride 108 H (98-107) mmol/L BUN 4 L (7-17) mg/dL Creatinine 0.33 L (0.52-1.04) mg/dL Glucose 111 H (74-99) mg/dL Calcium 7.4 L (8.4-10.2) mg/dL Total Protein 5.7 L (6.3-8.2) g/dL Albumin 2.9 L (3.5-5.0) g/dL Assessment and Plan Assessment: 28-year-old lady POD#3 open appendectomy for acute suppurative appendicitis without rupture or abscess. Second trimester at 25 weeks' gestation, reassuring ultrasound. Postop pain resolving, tolerating regular diet. Plan: Okay for discharge home from a surgical standpoint. Continue with oral antibiotics for an additional 7 day course. Will anticipate removing her drain in the office on her first postoperative visit. If we can get her scheduled in my office for this coming Saturday I'll plan on seeing her, otherwise she'll need to follow-up with either Dr. Lees or Dr. Reinoso the subsequent week at the [facility] general surgery clinic. VAC dressing can be removed and discarded on postoperative day 7. No lifting over 10 pounds for 4-6 weeks. May shower. Time with Patient: Greater than 30
[2023-04-29 17:26] VITALS: BP 121/71; PULSE 72; RESP 18; TEMP 97.3
== END 2023-04-29 17:10 | disposition home or self-care (01) | DRG 818 ==
LOC: FBPOP 08:25 → 4FBP 11:42
PROVIDERS: ADMIT Obstetrics & Gynecology; ATTEND Obstetrics & Gynecology
PROC: 0DTJ0ZZ Resection of Appendix, Open Approach (ICD-10-PCS; principal; 2023-04-26 17:05)
DX: O99.612 Diseases of the digestive system complicating pregnancy, second trimester (principal); K35.80 Unspecified acute appendicitis; O60.02 Preterm labor without delivery, second trimester; Z3A.25 25 weeks gestation of pregnancy; Z79.899 Other long term (current) drug therapy
CPT/HCPCS: 36415; 74177; 76705; 76815; 80048; 80053; 81003; 85025; 85610; 87070; 87075; 87205; 88304; 99213

== ENCOUNTER 2023-07-17 16:00 | Outpatient (CLI) | payer BC ==
[2023-07-17 18:23] LABS: Appearance,Urine Cloudy (Clear); Bacteria,Urine Few /hpf; Bilirubin,Urine Negative (Negative); Blood,Urine Negative (Negative); Budding Yeast,Urine Rare /hpf; Color,Urine Colorless; Glucose,Urine (UA) Negative (Negative); Ketones,Urine Negative (Negative); Leukocyte Esterase,Urine Large (Negative); Mucus,Urine Rare /hpf; Nitrite,Urine Negative (Negative); PH, Urine 6.5 (5.0-8.0); Protein,Urine Negative (Negative); RBC,Urine 5 /hpf (0-5); Specific Gravity,Urine 1.005 (1.001-1.035); Squamous Epithelial Cell,Urine 10 /hpf (0-4); Urobilinogen,Urine <2.0 mg/dL (<2.0); WBC,Urine 19 /hpf (0-5)
[2023-07-17 19:40] LABS: ALT 14 U/L (4-34); AST 21 U/L (14-36); African American GFR (CKD) >90 (>60 ml/min/1.73 sqM); Blood Urea Nitrogen 7 mg/dL (7-17); Creatinine,Urine Random 23.4 mg/dL; LDH 186 U/L (120-246); Non-African American GFR(CKD) >90 (>60 ml/min/1.73 sqM); Protein/Creatinine Ratio,Urine 0.684; Uric Acid 4.5 mg/dL (3.7-7.4)
[2023-07-17 19:42] LABS: Basophils % (A) 0 %; Eosinophils % (A) 1 %; HCT 31.8 % (34.0-46.0); HGB 10.7 gm/dL (11.4-16.0); Lymphocytes # (A) 1.4 k/uL (1.0-4.8); Lymphocytes % (A) 15 %; MCH 31.4 pg (25.0-35.0); MCHC 33.6 g/dL (31.0-37.0); MCV 93.2 fL (80.0-100.0); Mean Platelet Volume 9.2; Monocytes # (A) 0.5 k/uL (0-1.0); Monocytes % (A) 5 %; Neutrophils # (A) 7.1 k/uL (1.3-7.7); Neutrophils % (A) 78 %; Platelet Count 178 k/uL (150-450); RBC 3.41 m/uL (3.80-5.40); RDW 14.2 % (11.5-15.5); WBC 9.1 k/uL (3.8-10.6)
[2023-07-17 20:25] VITALS: BP 134/84; PULSE 79; RESP 17; TEMP 97.6
--- NOTE | 2023-07-21 10:28 | P.MSEPDOC ---
Presenting Problems - Arrival Data Date of Arrival on Unit: 07/17/23 Time of Arrival on Unit: 16:01 Mode of Transport: Ambulatory - Complaint OB-Reason for Admission/Chief Complaint: PIH Comment: Pt sent over from the office by Dr. Woodard with an order for preeclampsia workup. O14.90 Medical History - Information : 2 Para: 1 Term: 1 : 0 Abortions: Spontaneous or Elective: 0 Number of Living Children: 1 - Gestational Age Gestational Age by NHUNG (wks/days): 37 Weeks and 2 Days Review of Systems - Review of Systems Constitutional: No problems Breast: No problems ENT: No problems Cardiovascular: No problems Respiratory: No problems Gastrointestinal: No problems Genitourinary: No problems Musculoskeletal: No problems Neurological: No problems Skin: No problems Vital Signs - Temperature Temperature: 97.6 F Temperature Source: Temporal Artery Scan - Pulse Pulse Oximetery Pulse Rate: 79 Pulse Assessment Method: Automatic Cuff - Respirations Respiratory Rate: 17 Oxygen Delivery Method: Room Air - Blood Pressure Right Arm Blood Pressure: 134/84 Blood Pressure Mean: 100 Blood Pressure Source: Automatic Cuff Medical Screen Scoring - Uterine Contractions Resting: Soft to palpation - Assessment - Baby A Baseline FHR: 130 Heart Rate - NICHD Category: Category I (Normal) NST: Reactive Physician Notification - Physician Notified Physician Notified Date: 07/17/23 Physician Notified Time: 19:30 Physician: Susan Woodard Order Received: Yes - Notification Comment Comment: Dr. Woodard in dept and given report on lab results. Orders to discharge home with instructions to follow up in office on Saturday with Dr. Bueno for twice a week nst's and bp checks. Maternal Triage Index - Maternal Triage Index Presenting for scheduled procedure w/no complaint: No - Stat/Priority 1 Stat Priority 1: No - Urgent/Priority 2 Urgent Priority 2: No - Prompt/Priority 3 Prompt Priority 3: No - Non-Urgent/Priority 4 Non-Urgent Priority 4: No - Scheduled/Requesting Priority 5 Scheduled/Requesting Priority 5: Yes Criteria Met for Priority 5: Pt sent over from the office by Dr. Woodard with an order for preeclampsia workup. O14.90 Disposition - Disposition OB Disposition: Discharge to home, Written follow up instructions reviewed Discharge Date: 07/17/23 Discharge Time: 19:40 I agree with the RN Medical Screening Exam: Yes Physician's MSE Comment: Patient was sent over from the office for pre-eclampsia workup due to history of preeclampsia, occasional blurry vision and headaches, increased swelling and a history of 1 undocumented elevated blood pressure. In triage patient only had 1 blood pressure with a systolic of 141. All other BPs were normal range. Labs were all normal other than elevated P/C ratio. Patient was instructed to follow up with Dr. Bueno early next week and to do twice weekly NSTs/BP checks. Case reviewed; plan agreed upon as documented in EMR&OBIX.: Yes Diagnosis: PROTEINURIA, UNSPECIFIED
== END 2023-07-17 19:40 | disposition home or self-care (01) ==
LOC: FBPOP 16:00
PROVIDERS: ATTEND Obstetrics & Gynecology
DX: O12.13 Gestational proteinuria, third trimester (principal); O14.94 Unspecified pre-eclampsia, complicating childbirth; Z37.9 Outcome of delivery, unspecified; Z3A.37 37 weeks gestation of pregnancy
CPT/HCPCS: 36415; 59025; 81001; 82565; 82570; 83615; 84156; 84450; 84460; 84520; 84550; 85025

== ENCOUNTER 2023-07-30 05:50 | Inpatient (IN) | payer BC, OTHER ==
[2023-07-30] MEDS ORDERED: OXYTOCIN 10 UNIT/ML 1 ML VIAL IM PRN (05:59)
[2023-07-30] MEDS ORDERED: CITRIC ACID-SODIUM CITRATE 15 ML CUP PO ONE (05:59)
[2023-07-30] MEDS ORDERED: CARBOPROST TROMETHAMINE 250 MCG/ML 1 ML AMP IM PRN (05:59)
[2023-07-30] MEDS ORDERED: miSOPROStoL 200 MCG TAB PO PRN (05:59)
[2023-07-30] MEDS ORDERED: METHYLERGONOVINE 0.2 MG/ML 1 ML AMP IM PRN (05:59)
[2023-07-30] MEDS ORDERED: TRANEXAMIC 1,000 MG/100ML-NACL 1,000 MG in EMPTY BAG 1 BAG IV PRN (05:59)
[2023-07-30] MEDS ORDERED: ceFAZolin 3 GM in SODIUM CHLORIDE 0.9% 100 ML IVPB ONE (06:05)
[2023-07-30] MEDS: LACTATED RINGERS 1,000 ML IV SCH ×3 (06:15→23:37)
[2023-07-30] MEDS ORDERED: OXYTOCIN 30 UNITS/500 ML NS 30 UNIT in SALINE 1 500ML.BAG IV SCH (06:15)
[2023-07-30 06:55] LABS: Basophils % (A) 0 %; Eosinophils % (A) 0 %; HCT 31.2 % (34.0-46.0); HGB 10.5 gm/dL (11.4-16.0); Lymphocytes # (A) 1.3 k/uL (1.0-4.8); Lymphocytes % (A) 15 %; MCH 31.5 pg (25.0-35.0); MCHC 33.6 g/dL (31.0-37.0); MCV 93.9 fL (80.0-100.0); Mean Platelet Volume 8.5; Monocytes # (A) 0.5 k/uL (0-1.0); Monocytes % (A) 5 %; Neutrophils # (A) 6.7 k/uL (1.3-7.7); Neutrophils % (A) 78 %; Platelet Count 175 k/uL (150-450); RBC 3.33 m/uL (3.80-5.40); RDW 14.1 % (11.5-15.5); WBC 8.6 k/uL (3.8-10.6)
[2023-07-30] MEDS ORDERED: ONDANSETRON 4 MG/2 ML VIAL ONE (07:59)
[2023-07-30] MEDS ORDERED: KETOROLAC 15 MG/ML 1 ML VIAL ONE (07:59)
[2023-07-30] MEDS ORDERED: MORPHINE SULFATE (PF) 0.3 MG/0.3 ML SYR ONE (07:59)
[2023-07-30] MEDS ORDERED: OXYTOCIN 30 UNITS/500 ML NS BAG IV ONE (07:59)
[2023-07-30] MEDS ORDERED: PHENYLEPHRINE-0.9% NACL SYG 1,000 MCG/10 ML SYRINGE ONE (07:59)
--- NOTE | 2023-07-30 08:42 | P.HPOB ---
History of Present Illness H&P Date: 07/30/23 Chief Complaint: repeat low transverse 28-year-old presents at 39 weeks and 1 day for repeat low transverse C- section and tubal ligation. Review of Systems All systems: negative Constitutional: Denies chills, Denies fever Eyes: denies blurred vision, denies pain Ears, nose, mouth and throat: Denies headache, Denies sore throat Cardiovascular: Denies chest pain, Denies shortness of breath Respiratory: Denies cough Gastrointestinal: Denies abdominal pain, Denies diarrhea, Denies nausea, Denies vomiting Genitourinary: Denies dysuria, Denies hematuria Musculoskeletal: Denies myalgias Integumentary: Denies pruritus, Denies rash Neurological: Denies numbness, Denies weakness Psychiatric: Denies anxiety, Denies depression Endocrine: Denies fatigue, Denies weight change Past Medical History Past Medical History: No Reported History Additional Past Medical History / Comment(s): PT has had one c-sections. This is her second and she has had care with me since the first trimester. She did have an appendectomy during this and loss of her significant other by suicide. History of Any Multi-Drug Resistant Organisms: None Reported Past Surgical History: Appendectomy, Section, Cholecystectomy Additional Past Surgical History / Comment(s): wisdom teeth removed Past Anesthesia/Blood Transfusion Reactions: No Reported Reaction Past Psychological History: Anxiety, Depression, PTSD Additional Psychological History / Comment(s): No medications Smoking Status: Never smoker Past Alcohol Use History: None Reported Past Drug Use History: None Reported - Past Family History Mother Family Medical History: No Reported History Father Family Medical History: Diabetes Mellitus, Hypertension Medications and Allergies Home Medications Medication Instructions Recorded Confirmed Type Vit No.179/Iron/Folic 1 each PO DAILY 07/25/23 07/30/23 History [ Tablet] Allergies Allergy/AdvReac Type Severity Reaction Status Date / Time No Known Allergies Allergy Verified 07/30/23 05:58 Exam Osteopathic Statement: *. No significant issues noted on an osteopathic stru ctural exam other than those noted in the History and Physical/Consult. Vital Signs Temp Pulse Resp BP Pulse Ox 07/30/23 06:33 97.8 F 79 16 117/82 99 Intake and Output 07/29/23 07/30/23 07/30/23 22:59 06:59 14:59 Other: # Voids 1 Weight 122.47 kg Heart: Regular rate and rhythm Lungs: Clear to auscultation bilaterally Abdomen: Soft, nontender Extremities: Negative Homans sign Results Result Diagrams: 07/30/23 06:30 Abnormal Lab Results - Last 24 Hours (Table) 07/30/23 Range/Units 06:30 RBC 3.33 L (3.80-5.40) m/uL Hgb 10.5 L (11.4-16.0) gm/dL Hct 31.2 L (34.0-46.0) % Assessment and Plan (1) Previous section Current Visit: Yes Status: Acute Code(s): Z98.891 - HISTORY OF UTERINE SCAR FROM PREVIOUS SURGERY SNOMED Code(s): 056709280 (2) Family planning Current Visit: Yes Status: Acute Code(s): Z30.09 - ENCOUNTER FOR OT GENERAL CNSL AND ADVICE ON CONTRACEPTION SNOMED Code(s): 104978672 Plan: Repeat low transverse with tubal ligation
--- NOTE | 2023-07-30 08:45 | P.OP ---
Date of Procedure: 07/30/23 Preoperative Diagnosis: 1. at 39 weeks and 1 day 2. Previous section 3. Family planning Postoperative Diagnosis: Same Procedure(s) Performed: Repeat low transverse with tubal ligation Anesthesia: spinal Surgeon: Paulina Bueno Associate Producer #1: Susan Woodard Estimated Blood Loss (ml): 530 IV fluids (ml): 600 Urine output (ml): 300 Pathology: other (Segments of bilateral fallopian tubes) Condition: stable Disposition: floor Operative Findings: Normal uterus, tubes, ovaries. Viable male, Apgars 8, 9, weight 7 lbs. 9 oz. Description of Procedure: Patient was taken to the operating room where spinal anesthesia was found be adequate. She was prepped and draped in normal sterile fashion in dorsal supine position with a leftward tilt. Pfannenstiel skin incision was made the scalpel and carried through to the underlying layer of fascia with the scalpel. Fascia was incised in midline and carried bilaterally with the Galvan scissors. The superior aspect of the fascial incision was grasped with Lashae clamps elevated and the underlying rectus muscles dissected off with the Galvan's. Attention was then turned to inferior aspect of same incision which in a similar fashion was grasped tented up and the underlying rectus muscles dissected off with the Galvan's. The rectus muscles were the midline and the peritoneum was identified tented up and entered sharply with the scalpel. The incision was extended superiorly and inferiorly with good visualization of the bladder. The bladder blade was inserted and the vesicouterine peritoneum was incised the Metzenbaums then carried bilaterally and bladder flap created digitally. A low transverse incision was then made on the uterus with the scalpel. This was carried bilaterally and digital manner. Infant's head delivered atraumatically, nose and mouth bulb suctioned, cord clamped and cut, handed off to waiting nurses. Apgars 8,9, weight 7 lbs. 9 oz. Placenta delivered manually, intact with three-vessel cord. The uterus is exteriorized and cleared of all clots and debris. The uterine incision was closed with 0 Vicryl in a running locked fashion. Second layer of the same sutures used in imbricating fashion to obtain excellent hemostasis. Both ovaries and tubes appeared normal. The right fallopian tube was grasped with a hemostat and a window was made in the mesosa lpinx with the Bovie. This fallopian tube was doubly ligated, segment was removed and the pedicles were cauterized with the Bovie. The left fallopian tube was then grasped with a hemostat and a window was made in the mesosalpinx with the Bovie. The fallopian tube was doubly ligated, segment was removed and the pedicles were cauterized with the Bovie. The uterus was placed back into the abdomen. The peritoneum was reapproximated using 2-0 Vicryl in a running fashion. The muscles were reapproximated using 2-0 Vicryl in interrupted fashion. The fascia was reapproximated using 0 Vicryl in a running fashion. The subcutaneous tissues closed with 3-0 Vicryl running fashion. The skin was closed lorri. Patient tolerated the procedure well, sponge and instrument counts were correct times 2 and she was taken to the recovery room in stable condition.
[2023-07-30] MEDS ORDERED: SIMETHICONE 80 MG CHEWABLE PO PRN (09:07)
[2023-07-30] MEDS ORDERED: diphenhydrAMINE 25 MG CAP PO PRN (09:07)
[2023-07-30] MEDS ORDERED: diphenhydrAMINE 50 MG/ML 1 ML VIAL IVP PRN ×2 (09:07)
[2023-07-30] MEDS ORDERED: Rhogam IMMUNE GLOBULIN 1,500 UNIT/1 ML IM ONE (09:07)
[2023-07-30] MEDS ORDERED: METOCLOPRAMIDE 5 MG/ML 2 ML VIAL IVP PRN (09:07)
[2023-07-30] MEDS ORDERED: MEASLES-MUMPS-RUBELLA VACC/PF 12,500 UNIT/0.5 ML VIAL SQ ONE (09:07)
[2023-07-30] MEDS ORDERED: diphenhydrAMINE 50 MG CAP PO PRN (09:07)
[2023-07-30] MEDS ORDERED: NALOXONE 0.4 MG/ML 1 ML VIAL IV PRN (09:07)
[2023-07-30] MEDS ORDERED: ZOLPIDEM 5 MG TAB PO PRN (09:07)
[2023-07-30] MEDS ORDERED: ONDANSETRON 4 MG/2 ML VIAL IVP PRN (09:07)
[2023-07-30] MEDS ORDERED: LACTATED RINGERS 1,000 ML IV SCH (09:15)
[2023-07-30] MEDS: ACETAMINOPHEN TAB 500 MG TAB PO SCH ×2 (11:12→19:01)
[2023-07-30] MEDS: IBUPROFEN 600 MG TAB PO SCH (11:48)
[2023-07-30] MEDS: ACETAMINOPHEN IV (For NPO) 1,000 MG in EMPTY BAG 1 BAG IVPB SCH ×2 (12:10→18:46)
[2023-07-30] MEDS: KETOROLAC 15 MG/ML 1 ML VIAL IVP SCH ×2 (14:55→23:35)
[2023-07-30] MEDS: SENNOSIDES-DOCUSATE SODIUM 1 EACH TAB PO SCH (21:46)
[2023-07-31] MEDS: ACETAMINOPHEN TAB 500 MG TAB PO SCH ×4 (01:26→22:26)
[2023-07-31] MEDS: IBUPROFEN 600 MG TAB PO SCH ×4 (02:08→20:35)
[2023-07-31 03:39] VITALS: RESP 16
[2023-07-31] MEDS: KETOROLAC 15 MG/ML 1 ML VIAL IVP SCH ×3 (05:25→18:35)
[2023-07-31 06:13] LABS: Basophils % (A) 0 %; Eosinophils # (A) 0.1 k/uL (0-0.7); Eosinophils % (A) 1 %; HCT 31.4 % (34.0-46.0); HGB 10.2 gm/dL (11.4-16.0); Lymphocytes # (A) 1.3 k/uL (1.0-4.8); Lymphocytes % (A) 15 %; MCH 30.9 pg (25.0-35.0); MCHC 32.6 g/dL (31.0-37.0); MCV 94.8 fL (80.0-100.0); Mean Platelet Volume 8.5; Monocytes # (A) 0.4 k/uL (0-1.0); Monocytes % (A) 5 %; Neutrophils # (A) 6.9 k/uL (1.3-7.7); Neutrophils % (A) 79 %; Platelet Count 172 k/uL (150-450); RBC 3.31 m/uL (3.80-5.40); RDW 14.1 % (11.5-15.5); WBC 8.7 k/uL (3.8-10.6)
--- NOTE | 2023-07-31 07:04 | P.PN ---
Progress Note - Text Progress Note Date: 07/31/23 Postoperative day 1 status post section under spinal anesthesia, and i ntrathecal morphine given for postoperative analgesia, patient doing well, there is no anesthesia related complications, Patient had no headache, vital signs stable , Assessment and plan= postop day 1 status post , doing well there is no anesthesia related complication.
--- NOTE | 2023-07-31 07:25 | P.PNOBGPC ---
Subjective - Subjective Principal diagnosis: Status post repeat low transverse with tubal ligation Interval history: Patient seen and examined. Denies nausea, vomiting, chest pain, shortness of breath or calf pain. Patient reports: Reports appetite normal, Reports voiding normally, Reports pain well controlled, Reports ambulating normally [place]: doing well Objective - Vital Signs Latest vital signs: Vital Signs Temp Pulse Resp BP Pulse Ox 07/31/23 03:35 98.8 F 78 16 128/79 98 07/31/23 00:00 98.0 F 69 17 108/70 93 L 07/30/23 20:00 98.2 F 82 15 116/72 97 07/30/23 15:06 97.9 F 74 16 115/75 97 07/30/23 10:53 98.1 F 69 16 131/79 99 07/30/23 10:15 72 16 134/93 99 07/30/23 09:45 71 16 135/86 99 07/30/23 09:30 76 16 140/96 97 07/30/23 09:15 74 15 130/85 98 07/30/23 09:00 75 16 123/74 97 07/30/23 08:45 97.7 F 74 16 124/66 97 Intake and Output 07/30/23 07/31/23 07/31/23 22:59 06:59 14:59 Intake Total 480 Output Total 300 600 Balance 180 -600 Intake: Oral 480 Output: Urine 300 600 Uretheral (Chiu) 300 Other: # Voids 2 - Exam Lungs: bilateral: normal Chest: Normal S1, Normal S2 Extremities: Present: normal Abdomen: Present: normal appearance, soft. Absent: distention, tenderness Incision: Present: normal, dry, intact Uterus: Present: normal, firm - Labs Labs: Abnormal Lab Results - Last 24 Hours (Table) 07/31/23 Range/Units 05:50 RBC 3.31 L (3.80-5.40) m/uL Hgb 10.2 L (11.4-16.0) gm/dL Hct 31.4 L (34.0-46.0) % Assessment and Plan (1) Previous section Current Visit: Yes Status: Resolved Code(s): Z98.891 - HISTORY OF UTERINE SCAR FROM PREVIOUS SURGERY SNOMED Code(s): 142170672 (2) Family planning Current Visit: Yes Status: Resolved Code(s): Z30.09 - ENCOUNTER FOR OTH GENERAL CNSL AND ADVICE ON CONTRACEPTION SNOMED Code(s): 719328324 (3) Status post repeat low transverse section Current Visit: Yes Status: Acute Code(s): Z98.891 - HISTORY OF UTERINE SCAR FROM PREVIOUS SURGERY SNOMED Code(s): 393630222 (4) Status post tubal ligation at time of delivery, current hosp Current Visit: Yes Status: Acute Code(s): O80 - ENCOUNTER FOR FULL-TERM UNCOMPLICATED DELIVERY; Z30.2 - ENCOUNTER FOR STERILIZATION SNOMED Code(s): 46056021839193 Plan: 1. Continue post operative care 2. Regular diet 3. By mouth pain medication
[2023-07-31] MEDS: SENNOSIDES-DOCUSATE SODIUM 1 EACH TAB PO SCH (08:41)
[2023-07-31] MEDS: LACTATED RINGERS 1,000 ML IV SCH ×2 (10:51→16:08)
[2023-08-01] MEDS: SENNOSIDES-DOCUSATE SODIUM 1 EACH TAB PO SCH (01:13)
[2023-08-01] MEDS: IBUPROFEN 600 MG TAB PO SCH ×2 (03:24→10:22)
[2023-08-01] MEDS: ACETAMINOPHEN TAB 500 MG TAB PO SCH ×2 (05:57→12:17)
--- NOTE | 2023-08-01 07:27 | P.DS ---
Providers Date of admission: 07/30/23 05:50 Expected date of discharge: 08/01/23 Attending physician: Paulina Bueno Primary care physician: Stated None - Discharge Diagnosis(es) (1) Previous section Current Visit: Yes Status: Resolved (2) Family planning Current Visit: Yes Status: Resolved (3) Status post repeat low transverse section Current Visit: Yes Status: Acute (4) Status post tubal ligation at time of delivery, current hosp Current Visit: Yes Status: Acute Hospital Course: Presented for a repeat low transverse and tubal ligation. She underwent this procedure without complication. Postoperative course was uneventful. She denies nausea, vomiting, chest pain, shortness of breath or calf pain. Patient will be discharged home day #2 in stable condition to follow-up with me in 6 weeks. Plan - Discharge Summary Discharge Rx Participant: No New Discharge Prescriptions: New Ibuprofen [Motrin] 600 mg PO Q6H #30 tab No Action Vit No.179/Iron/Folic [ Tablet] 1 each PO DAILY Discharge Medication List Vit No.179/Iron/Folic [ Tablet] 1 each PO DAILY 07/25/23 [History] Ibuprofen [Motrin] 600 mg PO Q6H #30 tab 08/01/23 [Rx] Follow up Appointment(s)/Referral(s): Paulina Bueno DO [Doctor of Osteopathic Medicine] - 09/19/23 11:15 am (Post Op Appointment 08-09-2023 at 1:30) Discharge Disposition: HOME SELF-CARE
[2023-08-01 10:30] VITALS: BP 112/75; PULSE 72; TEMP 97.5
== END 2023-08-01 13:30 | disposition home or self-care (01) | DRG 785 ==
LOC: 4FBP 05:50
PROVIDERS: ADMIT Obstetrics & Gynecology; ATTEND Obstetrics & Gynecology
PROC: 0UB70ZZ Excision of Bilateral Fallopian Tubes, Open Approach (ICD-10-PCS; principal; 2023-07-30 08:00)
PROC: 3E0234Z Introduction of Serum, Toxoid and Vaccine into Muscle, Percutaneous Approach (ICD-10-PCS; principal; 2023-07-30 08:00)
PROC: 10D00Z1 Extraction of Products of Conception, Low, Open Approach (ICD-10-PCS; principal; 2023-07-30 08:00)
PROC: 3E0134Z Introduction of Serum, Toxoid and Vaccine into Subcutaneous Tissue, Percutaneous Approach (ICD-10-PCS; 2023-07-31)
DX: O34.211 Maternal care for low transverse scar from previous cesarean delivery (principal); Z30.2 Encounter for sterilization; O26.893 Other specified pregnancy related conditions, third trimester; Z67.11 Type A blood, Rh negative; O99.344 Other mental disorders complicating childbirth; F41.9 Anxiety disorder, unspecified; F43.10 Post-traumatic stress disorder, unspecified; F32.A Depression, unspecified; Z63.4 Disappearance and death of family member; Z23 Encounter for immunization; Z3A.39 39 weeks gestation of pregnancy; Z37.0 Single live birth
CPT/HCPCS: 85025; 85461; 86850; 86900; 86901; 90707

== ENCOUNTER 2023-10-25 15:20 | Emergency (ER) | payer OTHER, BC ==
[2023-10-25 15:38] VITALS: BP 155/90; PULSE 79; RESP 18; TEMP 97.6
--- NOTE | 2023-10-25 16:09 | XR ---
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 Asymmetric bony hyperostosis on the left noted to contribute to at least moderate left neuroforaminal stenosis on the patient's recent CT. Vertebral b wil heights are preserved and alignment is maintained. Pelvis and right hip: SI joints appear symmetric and intact as does the pubic symphysis. Both hips appear symmetric and int act. No acute fracture, subluxation, or dislocation seen. Right knee: Extensor mechanism is intact. No acute fracture, subluxation, dislocation. Joint spaces relatively ma intained. No joint effusion. Impression: 1. Lumbar spine: Congenital interbody ankylosis L4-L5. When correlating with patient's prior CT, asym metric bony hyperostosis likely contribute to at least a moderate left neuroforaminal stenosis at thi s level. No vertebral compression collapse or malalignment. 2. Pelvis and right hip: No acute osseous abnormality seen. 3. Right knee: No acute osseous abnormality seen.
--- NOTE | 2023-10-25 16:21 | ED ---
Lower Extremity Injury HPI - General Chief Complaint: Extremity Injury, Lower Stated Complaint: [facility]-Back/Leg Pain Time Seen by Provider: 10/25/23 15:29 Source: patient, RN notes reviewed Mode of arrival: ambulatory Limitations: no limitations - History of Present Illness Initial Comments: Patient is a 28-year-old female presented ER with a chief complaint of back injury. 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 Patient is reporting mild tightness in her back and some radiating pain down her right leg. Patient denies any bowel or bladder incontinence, fevers, IV drug use, saddle paresthesias. She denies any head injury, LOC, or other injuries. - Related Data Home Medications Medication Instructions Recorded Confirmed Vit No.179/Iron/Folic 1 each PO DAILY 07/25/23 07/30/23 [ Tablet] Previous Rx's Medication Instructions Recorded Ibuprofen [Motrin] 600 mg PO Q6H #30 tab 08/01/23 Cyclobenzaprine [Flexeril] 5 mg PO TID PRN #15 tablet 10/25/23 Allergies Allergy/AdvReac Type Severity Reaction Status Date / Time No Known Allergies Allergy Verified 10/25/23 15:27 Review of Systems ROS Statement: Those systems with pertinent positive or pertinent negative responses have been documented in the HPI. ROS Other: All systems not noted in ROS Statement are negative. Past Medical History Past Medical History: No Reported History Additional Past Medical History / Comment(s): PT has had one c-sections. This is her second and she has had care with me since the first trimester. She did have an appendectomy during this and loss of her significant other by suicide. History of Any Multi-Drug Resistant Organisms: None Reported Past Surgical History: Appendectomy, Section, Cholecystectomy Additional Past Surgical History / Comment(s): wisdom teeth removed Past Anesthesia/Blood Transfusion Reactions: No Reported Reaction Past Psychological History: Anxiety, Depression, PTSD Smoking Status: Never smoker Past Alcohol Use History: None Reported Past Drug Use History: None Reported - Past Family History Mother Family Medical History: No Reported History Father Family Medical History: Diabetes Mellitus, Hypertension General Exam Limitations: no limitations General appearance: alert, in no apparent distress Respiratory exam: Present: normal lung sounds bilaterally. Absent: respiratory distress, wheezes, rales, rhonchi, stridor Cardiovascular Exam: Present: regular rate, normal rhythm, normal heart sounds. Absent: systolic murmur, diastolic murmur, rubs, gallop, clicks Extremities exam: Present: normal inspection, full ROM, normal capillary refill. Absent: tenderness, pedal edema, joint swelling, calf tenderness Back exam: Present: normal inspection Neurological exam: Present: alert, oriented X3, CN II-XII intact Psychiatric exam: Present: normal affect, normal mood Skin exam: Present: warm, dry, intact, normal color. Absent: rash Course Vital Signs 10/25/23 15:22 Temperature 97.6 F Pulse Rate 79 Respiratory 18 Rate Blood Pressure 155/90 O2 Sat by Pulse 98 Oximetry Medical Decision Making - Medical Decision Making Was pt. sent in by a medical professional or institution (, PA, BOARD HANDLER, urgent care, hospital, or fdc...) When possible be specific @ -No Did you speak to anyone other than the patient for history (EMS, parent, family, police, friend...)? What history was obtained from this source @ -No Did you review nursing and triage notes (agree or disagree)? Why? @ -I reviewed and agree with nursing and triage notes Were old charts reviewed (outside hosp., previous admission, EMS record, old EKG, old radiological studies, urgent care reports/EKG's, fdc records)? Report findings @ -No old charts were reviewed Differential Diagnosis (chest pain, altered mental status, abdominal pain women, abdominal pain men, vaginal bleeding, weakness, fever, dyspnea, syncope, headache, dizziness, GI bleed, back pain, seizure, CVA, palpatations, mental health, musculoskeletal)? @ -Differential Back Pain: Strain, zoster, cauda equina syndrome, epidural abscess, vertebral osteomyelitis, discitis, fracture, subluxation, disc herniation, DJD, spinal stenosis, dissection, AAA, pancreatitis, peptic ulcer disease, pyelonephritis, kidney stone, this is not meant to be an all-inclusive list. EKG interpreted by me (3pts min.). @ -None X-rays interpreted by me (1pt min.). @ -Lumbar spine x-rays shows no acute fracture or dislocations. Right hip with AP pelvis x-rays show no acute osseous normality. Right knee shows no acute fractures or dislocations. CT interpreted by me (1pt min.). @ -None done U/S interpreted by me (1pt. min.). @ -None done What testing was considered but not performed or refused? (CT, X-rays, U/S, labs)? Why? @ -None What meds were considered but not given or refused? Why? @ -None Did you discuss the management of the patient with other professionals (professionals i.e. DrTucker, PA, BOARD HANDLER, lab, RT, psych nurse, social work instructor, associate justice, teacher, radiation safety officer, correctional counselor/case manager)? Give summary @ -No Was smoking cessation discussed for >3mins.? @ -No Was critical care preformed (if so, how long)? @ -No Were there social determinants of health that impacted care today? How? (Homelessness, low income, unemployed, alcoholism, drug addiction, transportation, low edu. Level, literacy, decrease access to med. care, penitentiary, rehab)? @ -No Was there de-escalation of care discussed even if they declined (Discuss DNR or withdrawal of care, Hospice)? DNR status @ -No What co-morbidities impacted this encounter? (DM, HTN, Smoking, COPD, CAD, Cancer, CVA, ARF, Chemo, Hep., AIDS, mental health diagnosis, sleep apnea, morbid obesity)? @ -None Was patient admitted / discharged? Hospital course, mention meds given and route, prescriptions, significant lab abnormalities, going to OR and other pertinent info. @ -Discharge. Patient is a 28-year-old female presented ER with chief complaint of back injury. Upon examination, patient's vital signs are stable. Physical exam was significant for tenderness to lumbar spine. No red flag back pain symptoms were present. Lumbar spine, right hip with AP pelvis, right knee x-ray showed no acute fractures or dislocations. Patient refused pain medication. Patient will be discharged with a prescription for Flexeril. I advised patient to know how this medication effects her before operating machinery. Patient will be discharged in stable condition with follow-up to PCP. Return parameters were discussed. Patient is resting understanding and agreement with care plan. Undiagnosed new problem with uncertain prognosis? @ -No Drug Therapy requiring intensive monitoring for toxicity (Heparin, Nitro, Insulin, Cardizem)? @ -No Were any procedures done? @ -No Diagnosis/symptom? @ -Muscle spasm Acute, or Chronic, or Acute on Chronic? @ -Acute Uncomplicated (without systemic symptoms) or Complicated (systemic symptoms)? @ -Uncomplicated Side effects of treatment? @ -No Exacerbation, Progression, or Severe Exacerbation? @ -No Poses a threat to life or bodily function? How? (Chest pain, [place], PR, pneumonia, PE, COPD, DKA, ARF, appy, cholecystitis, CVA, Diverticulitis, Homicidal, Suicidal, threat to staff... and all critical care pts) @ -No - Radiology Data Radiology results: report reviewed, image reviewed Disposition Clinical Impression: Muscle spasm Disposition: HOME SELF-CARE Condition: Stable Instructions (If sedation given, give patient instructions): Muscle Spasm (ED) Additional Instructions: Please return to the Emergency Department if symptoms worsen or any other concerns. Prescriptions: Cyclobenzaprine [Flexeril] 5 mg PO TID PRN #15 tablet PRN Reason: Muscle Spasm Is patient prescribed a controlled substance at d/c from ED?: No Referrals: Monty Torres MD [Primary Care Provider] - 1-2 days Time of Disposition: 16:22
== END 2023-10-25 16:38 | disposition home or self-care (01) ==
LOC: EC 15:20
DX: M62.830 Muscle spasm of back (principal); X50.0XXA Overexertion from strenuous movement or load, initial encounter; Y99.0 Civilian activity done for income or pay
CPT/HCPCS: 72100; 73502; 99283